=== PATIENT | male | born 1950 | race Caucasian/White ===

== ENCOUNTER 2016-11-24 08:50 | Emergency (ER) | payer OTHER ==
[2016-11-24 11:30] VITALS: BP 142/84
== END 2016-11-24 11:30 | disposition home or self-care (01) ==
LOC: ED 08:50
DX: M54.41 Lumbago with sciatica, right side (principal); I10 Essential (primary) hypertension; E78.00 Pure hypercholesterolemia, unspecified; Z87.891 Personal history of nicotine dependence
CPT/HCPCS: J1885; J2930

== ENCOUNTER 2020-04-09 07:14 | Emergency (ER) | payer OTHER ==
[~2020-04-09] VITALS: Ht 175.3 cm; Wt 81.2 kg
[2020-04-09 07:22] VITALS: Ht 175.3 cm; Wt 81.2 kg
[2020-04-09 08:56] VITALS: BP 139/75
[2020-04-09 09:14] LABS: UA SPECIFIC GRAVITY >=1.030 (1.005-1.035); microscopic required? YES; urine erythrocyte NEGATIVE (NEGATIVE)
== END 2020-04-09 08:56 | disposition home or self-care (01) ==
LOC: ED 07:14
PROVIDERS: Emergency Medicine
DX: M54.5 Low back pain (principal); M19.90 Unspecified osteoarthritis, unspecified site
CPT/HCPCS: J1100; J1885